=== PATIENT | female | born 1985 | race Caucasian/White ===

== ENCOUNTER 2019-01-07 12:55 | Emergency (ER) | payer MEDICAID ==
[~2019-01-07] VITALS: Ht 162.6 cm; Wt 74.4 kg
[2019-01-07 13:12] VITALS: BP 103/77
--- NOTE | 2019-01-07 13:16 | NUR ---
Pt sent to lobby to wait for ER bed.
[2019-01-07 15:15] VITALS: BP 107/75
--- NOTE | 2019-01-07 15:16 | NUR ---
Patient discharged with v/s stable. Written and verbal after care instructions given and explained. Patient verbalized understanding. Ambulatory with steady gait. All questions addressed prior to discharge. Advised to follow up with PMD.
== END 2019-01-07 15:16 | disposition home or self-care (01) ==
LOC: MED 12:55
DX: B34.9 Viral infection, unspecified (principal); Z90.49 Acquired absence of other specified parts of digestive tract; Z98.890 Other specified postprocedural states
CPT/HCPCS: 81002; 81025; 99281